=== PATIENT | male | born 1950 | race Caucasian/White ===

== ENCOUNTER → 2018-06-29 07:49 | Outpatient (CLI) | payer MEDICARE, OTHER, SELFPAY ==
--- NOTE | 2018-06-29 07:54 | US_ITS ---
US abd. aorta screening HISTORY: ITS.REASON: AAA ORDERING PHYSICIAN: Holden Garber MD PATIENT AGE: 68 years Comparison: None FINDINGS: There is fusiform dilatation of the abdominal aorta measuring up to 3.2 cm in maximum AP dimension. Proximal right common iliac 1 cm in the proximal left common iliac is 1 cm. No detectable color flow is evident in the distal aorta in one region. It is uncertain whether this is a true finding. Flow is present distal to this area. This could be due to artifact or clot. IMPRESSION: 1. Fusiform dilatation of the abdominal aorta at 3.2 cm. 2. Small area of no detectable color flow possibly artifactual. This may be confirmed with CT angiogram
== END ==
PROVIDERS: Visit Provider Internal Medicine
DX: I71.4 Abdominal aortic aneurysm, without rupture (principal)
CPT/HCPCS: 76705

== ENCOUNTER 2019-11-22 08:39 | Day surgery (SDC) | payer MEDICARE, SELFPAY ==
[2019-11-22] VITALS (16 sets, daily range): BP systolic 102–134; BP diastolic 63–79; PULSE 73–99; RESP 16–18; TEMP 36.8; O2SAT 88–100; BMI 21.9
[2019-11-22 09:25] LABS: Eosinophils # 0.1 K/mm3 (0.0-0.4); Eosinophils % 2.8 % (0.1-12.0); Hematocrit 39.4 % (42.0-52.0); Hemoglobin 13.3 g/dL (14.1-18.0); Lymphocytes # 0.6 K/mm3 (0.7-4.5); Lymphocytes % 14.1 % (10-50); Mean Corpuscular HGB Conc 33.7 g/dL (31.8-35.4); Mean Platelet Volume 8.4 fl (7.4-10.4); Monocytes # 0.3 K/mm3 (0.1-1.0); Monocytes % 5.9 % (1.7-9.3); Neutrophils # 3.2 K/mm3 (1.8-7.8); Neutrophils % 76.2 % (37.0-80.0); Platelet Count 182 K/mm3 (142-424); Red Blood Count 4.58 M/mm3 (4.60-6.20); Red Cell Distribution Width 14.9 % (11.5-17.5); White Blood Count 4.2 K/mm3 (4.8-10.8)
[2019-11-22 09:30] LABS: Anion Gap 9.2 mEq/L (5-15); Blood Urea Nitrogen 16 mg/dl (9-20); Calcium 9.3 mg/dl (8.4-10.2); Carbon Dioxide 32 mmol/L (22.0-30.0); Chloride 100 mmol/L (98-107); Creatinine Clearance Estimated 73 mL/min (50-200); Estimated Glomerular Filt Rate 84 ml/min (>60); GFR (African American) 102 ML/MIN (>60); Glucose 84 mg/dl (74-100); Potassium 4.2 mmoL/L (3.5-5.1); Sodium 137 mmol/L (136-145)
[2019-11-22 09:57] LABS: Coronavirus 19 IgG Antibody Negative (Negative); Coronavirus 19 IgM Antibody Negative (Negative)
--- NOTE | 2019-11-22 10:48 | CA_ITS ---
APPROVED REPORT EXAM: Comprehensive 2D, Doppler, and color-flow Echocardiogram Breaker Engineer: Theresa Diaz RDCS Ht: 6 ft 0 in Wt: 162lbs BSA: 1.95 BP: 119/62 mmHg Indications: CM,AF,CAD,PP 2D Dimensions LVOT 2.27 cm (M/F) 1.5-2.5 M-Mode Dimensions RVDd 2.28 cm (0.9-2.6) LVDd 5.57 cm (3.5-5.7) LVDs 4.83 cm (3.5-5.7) IVSd 0.44 cm (0.6-1.1) PWd 0.60 cm (0.6-1.1) EF (Teich) 28.10% FS 13.30% EDV (Teich) 151.80 mL ESV (Teich) 109.10 mL LV Diastology E/A Ratio 4.34 Aortic Valve LVOT Max 88.00 (70-110 cm/s) LVOT VTI 13.04 cm Mitral Valve MV A Velocity 17.00 (40-130 cm/s) Left Ventricle Left atrium is mildly enlarged, left ventricle is normal size, mild concentric left ventricular hypertrophy, visually estimated ejection fraction 30%, left ventricle is globally hypokinetic, there is abnormal septal motion. Diastolic parameters are inconclusive. Right Ventricle Right atrium and right ventricular normal size and contractility, there is a pacemaker or an AICD lead seen in right atrium and right ventricle. Aortic Valve Aortic valve is thickened and calcified leaflet chordae display good mobility, there is no aortic stenosis or aortic insufficiency. Mitral Valve Mitral valve is minimally thickened, there is mild mitral regurgitation. Tricuspid Valve Tricuspid valve is grossly normal, there is mild tricuspid regurgitation. Pulmonic Valve Pulmonic valve is poorly visualized. Great Vessels Aortic root is normal size. Pericardium No significant pericardial effusion noted. Conclusion 1. Mildly enlarged left atrium, normal left ventricular size, mild concentric left ventricular hypertrophy, visually estimated ejection fraction 30%, left ventricle is globally hypokinetic, there is abnormal septal motion. Diastolic parameters are inconclusive. 2. Thickened and calcified aortic valve without Doppler evidence of aortic stenosis or aortic insufficiency. 3. Mild mitral and tricuspid regurgitation. 4. No significant pericardial effusion noted. Electronically signed by : Milton Holt, 11/22/2019 18:26:24
--- NOTE | 2019-11-22 11:00 | IR_ITS ---
APPROVED REPORT Patient Location: Outpatient Deep Fat Cook Fry: ANNE-MARIE Cloud RT (R) PROCEDURES Left heart catheterization Left ventriculogram Selective coronary angiogram INDICATION Class IV angina pectoris, Known coronary artery disease, Abnormal Myoview Informed consent was obtained prior to the procedure. COMPLICATIONS None Estimated Blood Loss: less than 10 ml TECHNIQUE One percent lidocaine was used to anesthetize the right groin. The right femoral artery was accessed via the Seldinger technique. A 4-Mongolian sheath was placed in the right femoral artery. The JL-4 and JR-4 catheter was also used to perform left heart catheterization left ventriculogram and selective coronary angiogram. At the end of the procedure the patient was transferred to the post-op holding area in stable condition for arterial sheath removal.. ANGIOGRAPHIC RESULTS The left main artery Has an ostial 10% stenosis and a distal 30% stenosis The left anterior descending artery Has a stent which originates off the ostial segment which is widely patent with mild concentric in-stent restenosis. There is mild to moderate vascular ectasia in the distal aspect of the stent. The stent transitions nicely into the proximal portion of the LAD at a 30% stenosis. There is an additional mid vessel 30% stenosis. The circumflex artery Is a large dominant vessel with a proximal 30% stenosis in mid vessel 30% stenosis and mild luminal irregularities in the large posterior descending artery. The right coronary artery Ostially occluded. The distal right coronary fills via collaterals from a large circumflex artery in a [id number] manner The FRASER ventriculogram reveals Reduced at 40% The left ventricular end-diastolic pressure 20 mmHg IMPRESSION Coronary artery disease as described above PLAN 1. Medical management. Patient symptoms almost certainly stemming from his pneumonectomy with COPD. Electronically signed by : Holden Garber, 11/22/2019 14:30:33
== END 2019-11-22 15:47 | disposition home or self-care (01) ==
LOC: CATHLAB 08:41
PROVIDERS: PCP Family Medicine; Visit Provider Internal Medicine
DX: I25.118 Atherosclerotic heart disease of native coronary artery with other forms of angina pectoris; I11.0 Hypertensive heart disease with heart failure; T82.855A Stenosis of coronary artery stent, initial encounter; I50.22 Chronic systolic (congestive) heart failure; C34.90 Malignant neoplasm of unspecified part of unspecified bronchus or lung; I42.0 Dilated cardiomyopathy; I71.4 Abdominal aortic aneurysm, without rupture; J43.8 Other emphysema; Z95.0 Presence of cardiac pacemaker; E78.5 Hyperlipidemia, unspecified; I42.9 Cardiomyopathy, unspecified; I48.20 Chronic atrial fibrillation, unspecified; Z99.81 Dependence on supplemental oxygen
CPT/HCPCS: 80048; 85025; 86328; 93306; 93458; 99152; C1725; C1769; J1642; J1644; Q9967

== ENCOUNTER 2019-12-07 08:50 | Day surgery (SDC) | payer MEDICARE, SELFPAY ==
[2019-12-07] VITALS (7 sets, daily range): BP systolic 89–99; BP diastolic 47–64; PULSE 71–78; RESP 16–20; TEMP 36.8; O2SAT 93–98; BMI 21.7
--- NOTE | 2019-12-07 | IR_ITS ---
APPROVED REPORT Patient Location: Outpatient Tungsten Refiner: ANNE-MARIE Kaur RT (R) PROCEDURES 1. Pocket Revision 2. Placement of right ventricular sensing pacing and shocking lead in the right ventricular apex. 3. Placement of left ventricular sensing pacing lead via the coronary sinus. 4. Capping of existing right ventricular lead. 5. Permanent cardiac resynchronization therapy with ICD implantation/biventricular pacemaker. INDICATION Chronic Atrial Tachy, Ischemic Cardiomyopathy, Ejection Fraction <30%, Wide QRS > 120 ms, [place] Heart Association Class 3 Congestive Heart Failure Informed consent was obtained prior to the procedure. COMPLICATIONS None Estimated Blood Loss: Less 50mls TECHNIQUE 1% lidocaine with epinephrine used to anesthetize the left anterior aspect of the chest. Scalpel was used to make the initial cutaneous incision and to dissect down into the fascia. The generator was removed from the existing pocket. Digital manipulation was required along with intermittent usage of scalpel in order to revise the pocket. The leads were removed from the old generator. Under fluoroscopic guidance the coronary sinus was cannulated and confirmed with an injection of contrast. An 0.014 wire was then placed distally in the inferior posterior segment of the left ventricle via the coronary sinus and the left ventricular lead was advanced. After achieving excellent thresholds and interrogation numbers the sheath was then peeled away and the lead was then secured into place using silk suture. Right Ventricular shocking lead was inserted and advanced in the apex of the right ventricle. After achieving excellent thresholds and interrogation numbers the sheath was then peeled away and the lead was then secured into place using silk suture. The existing right ventricular lead was capped off and left in place. Ancef was used to flush the pocket and the 3 leads were attached to the MACHINE ASSEMBLER-D generator. The generator was then secured into place by heavy silk suture. Monocryl was used to close the subcutaneous layers while rivera were used to close the subcutaneous layers while rivera were used to close the cutaneous layer. A pressure dressing was placed and the patient was transferred to the postop holding area in stable condition for postoperative care. IMPRESSION Explanted Generator: Medtronic SN unknown Capped RV Lead: Medtronic, model 5076, SN [id number] Implanted Generator Model: Vigilant X4 MACHINE ASSEMBLER-D IS-1/DF4/IS4, Model G247 Generator Serial No: [id number] Existing RA Lead Model: Capsure Fix Novus Bipolar IS-1, Model 5076 RA Lead Serial No: [id number] Implanted RV Lead Model: [place] 4-site Active Fix Dual Coil 64cm, Model 0276 RA Lead Serial No: [id number] Implanted LV Lead Model: Acuity X4 Spiral S LVA quad electrode IS4 Passive 86cm, Model 4674 LV Lead Serial No: [id number] Device Measurements: RA Lead: Intrinsic: 1.2 mV Threshold: Afib Impedence: 530 ohms RV Lead: Intrinsic: 10 mV Threshold: 0.9V@0.4ms Impedence: 486 ohms LV Lead: Threshold: 1V@1.0ms (LVTip1 to RV) Parameters: Mode: DDDR Base/Max: 70/130ppm VF: 200bpm, 5 sec., Quick Convert, 41J x 8 VT: 170bpm, 10 sec., ATP, 41J x 6 Conclusion 1. Successful Pocket Revision 2. Successful Placement of right ventricular sensing pacing and shocking lead in the right ventricular apex. 3. Successful Placement of left ventricular sensing pacing lead via the coronary sinus. 4. Successful Capping of existing right ventricular lead. 5. Successful Permanent cardiac resynchronization therapy with ICD implantation/biventricular pacemaker. PLAN 1. Post op wound ca
[2019-12-07 09:59] LABS: Basophils # 0.1 K/mm3 (0-0.2); Basophils % 1.6 % (0.1-2.0); Eosinophils # 0.1 K/mm3 (0.0-0.4); Eosinophils % 2.9 % (0.1-12.0); Hematocrit 48.4 % (42.0-52.0); Hemoglobin 15.6 g/dL (14.1-18.0); Lymphocytes # 0.6 K/mm3 (0.7-4.5); Lymphocytes % 14.2 % (10-50); Mean Corpuscular HGB Conc 32.2 g/dL (31.8-35.4); Mean Corpuscular Hemoglobin 28.9 pg (27.0-31.2); Mean Platelet Volume 8.8 fl (7.4-10.4); Monocytes # 0.3 K/mm3 (0.1-1.0); Monocytes % 6.6 % (1.7-9.3); Neutrophils # 3.4 K/mm3 (1.8-7.8); Neutrophils % 74.7 % (37.0-80.0); Platelet Count 203 K/mm3 (142-424); Red Blood Count 5.37 M/mm3 (4.60-6.20); Red Cell Distribution Width 15.2 % (11.5-17.5); White Blood Count 4.5 K/mm3 (4.8-10.8)
[2019-12-07 10:05] LABS: Chloride 99 mmol/L (98-107); Potassium 4.9 mmoL/L (3.5-5.1); Sodium 137 mmol/L (136-145)
[2019-12-07 10:08] LABS: Anion Gap 14.9 mEq/L (5-15); Blood Urea Nitrogen 22 mg/dl (9-20); Calcium 9.8 mg/dl (8.4-10.2); Carbon Dioxide 28 mmol/L (22.0-30.0); Creatinine Clearance Estimated 60 mL/min (50-200); Estimated Glomerular Filt Rate 60 ml/min (>60); GFR (African American) 73 ML/MIN (>60); Glucose 76 mg/dl (74-100)
[2019-12-07 10:23] LABS: Coronavirus 19 IgG Antibody Negative (Negative); Coronavirus 19 IgM Antibody Negative (Negative)
--- NOTE | 2019-12-07 12:33 | P.PN_ITS ---
[facility] Anesthesia Checklist - Patient Identification Patient Identification: Arm Band - Structural Data Admitted From: Home Planned Operative Procedure/s: Biventricular Pacemaker Upgrade Consent for Planned Operative Procedure(s) Verified: Yes Verified Documents: Surgical Consent, History and Physical - NPO Status Verified Time NPO: 00:00 - Additional verifications Anesthesia Reactions: No - Airway Assessment C-Spine Mobility Assessed: Yes (mp2) TMJ Mobility Assessed: Yes Dentition: Edentulous - Neurological Assessment Level of Consciousness: Awake, Alert - Anesthesia Plan Anesthesia Risk discussed: Yes Anesthesia Plan: Verified ASA Class: III Anesthesia Type: [facility] History I have reviewed the patient's past medical history: Yes Medical History: Reports:: Cancer, Cardiomyopathy, Chronic Obstructive Pulmonary Disease (COPD), Coronary Artery Disease, Hyperlipidemia, Hypertension, Internal Pacemaker, Lung Disease (lung ca), Osteoporosis *Have you ever received a pneumonia vaccine?: Yes *Have you received a flu vaccine this season?: Yes Other Medical History: Reports: Osteoporosis Anesthesia experience/problems:: nac Laterality Cases: Bilateral: Carpal Tunnel Release Other Surgeries: Yes: Angioplasty (no stents 08/2012, stents 2007, stent 2005), Cancer Surgery, Cardiac Catheterization, Cholecystectomy, Colonoscopy, Pacemaker Amputation: No Fractures: No - *Social History Last grade of school completed: 9th or 10th Smoking Status: Current every day smoker Tobacco Type: cigarettes # Packs/Day (cigarettes): 1 Alcohol Intake: never Substance Use Type: denies use *Occupational Status:: retired Housing: house Household Members: spouse *Travel in the last 8 weeks: None Family Hx:: Coronary Artery Disease, Cancer
--- NOTE | 2019-12-07 14:36 | XR_ITS ---
PROCEDURE: XR CHEST PORTABLE CLINICAL HISTORY: Confirm pacemaker/AID placement COMPARISON: CR [id number] XR chest portable from 06/17/[address] angio chest from 06/17/2018 XA CL PACEMAKER DEFIBRILATOR from 12/07/2019 FINDINGS: There is near complete opacification of the left hemithorax. There was an RV and RA pacer present previously. There has been interval insertion of an AICD device with the tip in the region the right ventricle and an additional pacer wire in the region of the coronary sinus both in satisfactory position. No evidence of pneumothorax. Right subclavian MediPort catheter is present with tip in the region of the SVC. Postsurgical changes right lower lobe. Chronic changes in the right lower lobe. IMPRESSION: Status post biventricular pacemaker as described above with good pacer wire positioning and no evidence of immediate complications Dictated by: Enrique Briceno MD 12/07/2019 15:22 Enrique Briceno MD in [place] 12/07/2019 15:22
== END 2019-12-07 16:05 | disposition home or self-care (01) ==
LOC: CATHLAB 08:53
PROVIDERS: PCP Family Medicine; Visit Provider Internal Medicine
PROC: 0JH609Z Insertion of Cardiac Resynchronization Defibrillator Pulse Generator into Chest Subcutaneous Tissue and Fascia, Open Approach (ICD-10-PCS; CPT 33249; principal; 2019-12-07 09:00)
DX: Z45.02 Encounter for adjustment and management of automatic implantable cardiac defibrillator (principal); I48.20 Chronic atrial fibrillation, unspecified; I11.0 Hypertensive heart disease with heart failure; I50.22 Chronic systolic (congestive) heart failure; C85.90 Non-Hodgkin lymphoma, unspecified, unspecified site; C34.90 Malignant neoplasm of unspecified part of unspecified bronchus or lung; Z72.0 Tobacco use; J44.9 Chronic obstructive pulmonary disease, unspecified; Z79.899 Other long term (current) drug therapy
CPT/HCPCS: 33249; 71045; 80048; 85025; 86328; C1769; C1777; C1882; C1900; Q9967

== ENCOUNTER → 2020-01-11 08:32 | Outpatient (CLI) | payer MEDICARE, SELFPAY ==
[2020-01-11 08:47] LABS: Basophils % 0.7 % (0.1-2.0); Eosinophils # 0.1 K/mm3 (0.0-0.4); Eosinophils % 1.6 % (0.1-12.0); Hematocrit 40.3 % (42.0-52.0); Hemoglobin 13.4 g/dL (14.1-18.0); Lymphocytes # 0.7 K/mm3 (0.7-4.5); Lymphocytes % 16.3 % (10-50); Mean Corpuscular HGB Conc 33.3 g/dL (31.8-35.4); Mean Corpuscular Hemoglobin 29.8 pg (27.0-31.2); Mean Corpuscular Volume 89.4 fl (80-94); Monocytes # 0.3 K/mm3 (0.1-1.0); Neutrophils # 3.2 K/mm3 (1.8-7.8); Neutrophils % 75.4 % (37.0-80.0); Platelet Count 171 K/mm3 (142-424); Red Blood Count 4.51 M/mm3 (4.60-6.20); Red Cell Distribution Width 15.5 % (11.5-17.5); White Blood Count 4.3 K/mm3 (4.8-10.8)
[2020-01-11 09:02] LABS: Chloride 100 mmol/L (98-107); Potassium 4.6 mmoL/L (3.5-5.1); Sodium 137 mmol/L (136-145)
[2020-01-11 09:05] LABS: Anion Gap 10.6 mEq/L (5-15); Blood Urea Nitrogen 17 mg/dl (9-20); Carbon Dioxide 31 mmol/L (22.0-30.0); Estimated Glomerular Filt Rate 60 ml/min (>60); GFR (African American) 73 ML/MIN (>60); Glucose 106 mg/dl (74-100)
== END ==
PROVIDERS: Visit Provider Nurse Practitioner Family
DX: I20.8 Other forms of angina pectoris (principal); I48.91 Unspecified atrial fibrillation; I50.9 Heart failure, unspecified; R07.89 Other chest pain
CPT/HCPCS: 36415; 80048; 85025

== ENCOUNTER 2020-04-13 14:01 | Day surgery (SDC) | payer MEDICARE, SELFPAY ==
--- NOTE | 2020-04-13 | IR_ITS ---
APPROVED REPORT Patient Location: Outpatient [facility] Counsellor: ANNE-MARIE Hull RT (R) PROCEDURES Removal of Bi-Ventricular ICD Removal of Coronary Sinus Lead Removal of Shocking right ventricular lead Capping of right atrial lead Capping of right ventricle lead INDICATION Infection of pocket Informed consent was obtained prior to the procedure. COMPLICATIONS None Estimated Blood Loss: Less than 10 ML TECHNIQUE 1% lidocaine with epinephrine used to anesthetize the left anterior aspect of the chest. Scalpel was used to make the initial cutaneous incision and then used to dissect down to the existing MANNEQUIN REFINISHER-D generator. The leads were removed from the old generator. Coronary Sinus lead was extracted. Right Ventricular shocking lead was extracted. Original rigth atrial and right ventricular lead were capped and placed back into pocket. Antibiotics were used to flush the pocket and the pacemaker was secured using 3-0 silk into the newly revised pocket. Monocryl was used to close the subcutaneous tissue and then rivera were placed on the cutaneous area in order to approximate the incision. Patient was transferred to the postop holding area in stable condition. IMPRESSION Successful Removal of Bi-Ventricular ICD Successful Removal of Coronary Sinus Lead Successful Removal of Shocking right ventricular lead Successful Capping of right atrial lead Successful Capping of right ventricle lead PLAN 1. Post Op Wound Care Electronically signed by : Holden Garber, 04/20/2020 16:39:54
[2020-04-13 14:40] VITALS: BMI 22.1
[2020-04-13 14:50] LABS: Basophils # 0.1 K/mm3 (0-0.2); Basophils % 1.8 % (0.1-2.0); Eosinophils # 0.1 K/mm3 (0.0-0.4); Eosinophils % 4.9 % (0.1-12.0); Hematocrit 29.1 % (42.0-52.0); Hemoglobin 9.6 g/dL (14.1-18.0); Lymphocytes # 0.8 K/mm3 (0.7-4.5); Mean Corpuscular HGB Conc 32.8 g/dL (31.8-35.4); Mean Corpuscular Hemoglobin 27.3 pg (27.0-31.2); Mean Corpuscular Volume 83.1 fl (80-94); Mean Platelet Volume 8.4 fl (7.4-10.4); Monocytes # 0.2 K/mm3 (0.1-1.0); Monocytes % 5.9 % (1.7-9.3); Neutrophils # 1.6 K/mm3 (1.8-7.8); Neutrophils % 59.5 % (37.0-80.0); Platelet Count 160 K/mm3 (142-424); Red Cell Distribution Width 14.8 % (11.5-17.5); White Blood Count 2.7 K/mm3 (4.8-10.8)
[2020-04-13 14:51] LABS: Chloride 101 mmol/L (98-107); Potassium 3.7 mmoL/L (3.5-5.1); Sodium 136 mmol/L (136-145)
[2020-04-13 14:54] LABS: Anion Gap 9.7 mEq/L (5-15); Blood Urea Nitrogen 10 mg/dl (9-20); Calcium 9.3 mg/dl (8.4-10.2); Carbon Dioxide 29 mmol/L (22.0-30.0); Creatinine Clearance Estimated 74 mL/min (50-200); Estimated Glomerular Filt Rate 84 ml/min (>60); GFR (African American) 102 ML/MIN (>60); Glucose 91 mg/dl (74-100)
[2020-04-13 15:12] LABS: Coronavirus 19 IgG Antibody Negative (Negative); Coronavirus 19 IgM Antibody Negative (Negative)
[2020-04-13 15:30] VITALS: BP 153/53; PULSE 72; RESP 16; O2SAT 96
[2020-04-13 15:33] VITALS: BP 115/53; PULSE 96; RESP 18; TEMP 36.9; O2SAT 100
[2020-04-13 15:45] VITALS: BP 115/53; PULSE 85; RESP 16; O2SAT 90
[2020-04-13 15:58] VITALS: BP 152/84; PULSE 84; RESP 16; O2SAT 94
[2020-04-13 16:00] VITALS: BP 144/70; PULSE 84; RESP 16; O2SAT 94
[2020-04-13 16:09] VITALS: BP 144/70; PULSE 84; RESP 16; O2SAT 94
== END 2020-04-13 16:20 | disposition home or self-care (01) ==
LOC: CATHLAB 14:02
PROVIDERS: PCP Nurse Practitioner Family; Visit Provider Internal Medicine
DX: T82.7XXA Infection and inflammatory reaction due to other cardiac and vascular devices, implants and grafts, initial encounter (principal); I25.10 Atherosclerotic heart disease of native coronary artery without angina pectoris; I42.0 Dilated cardiomyopathy; I48.91 Unspecified atrial fibrillation; I11.0 Hypertensive heart disease with heart failure; I50.22 Chronic systolic (congestive) heart failure; I71.4 Abdominal aortic aneurysm, without rupture; Z72.0 Tobacco use; C85.90 Non-Hodgkin lymphoma, unspecified, unspecified site; C34.90 Malignant neoplasm of unspecified part of unspecified bronchus or lung; Z79.899 Other long term (current) drug therapy; L03.313 Cellulitis of chest wall
CPT/HCPCS: 33241; 33272; 80048; 85025; 86328